=== PATIENT | female | born 2000 | race Caucasian/White ===

== ENCOUNTER 2020-08-01 16:33 | Emergency (ER) | payer BC ==
[~2020-08-01] VITALS: Ht 157.5 cm; Wt 77.1 kg
[2020-08-01] MEDS ORDERED: AMOXICILLIN 50500 MG PO (16:45)
[2020-08-01] MEDS ORDERED: PROZAC10 M1 PO (16:45)
[2020-08-01 17:02] LABS: ABSOLUTE LYMPHOCYTES 1.7 thou/uL (0.8-5.3); ABSOLUTE MONOCYTES 0.5 thou/uL (0.0-1.2); ABSOLUTE NEUTROPHILS 9.3 thou/uL (1.6-8.1); BASOPHILS 0.2 %; HEMATOCRIT 43.9 % (37.0-47.0); HEMOGLOBIN 14.8 gm/dL (12.0-15.0); MCH 28.7 pg (26.0-34.0); MCHC 33.7 g/dL (28.0-37.0); MCV 85.2 fL (80.0-100.0); MONOCYTES 4.2 %; MPV 7.2 fl. (7.2-11.1); NUCLEATED RBCS 0 /100WBC; PLATELET COUNT* 296 thou/uL (150-400); POLYS 80.6 %; RBC 5.16 mil/uL (4.20-5.00); RDW-CV 13.5 % (10.5-14.5); WBC 11.6 thou/uL (4.0-11.0)
[2020-08-01 17:07] LABS: CALCIUM 10.4 mg/dL (8.5-10.1); POTASSIUM 3.3 mmol/L (3.5-5.1)
[2020-08-01 17:11] LABS: TOTAL BILIRUBIN 0.4 mg/dL (<0.1-1.0)
[2020-08-01 17:12] LABS: ALBUMIN 4.5 g/dL (3.4-5.0); TOTAL PROTEIN 8.5 g/dL (6.4-8.2)
[2020-08-01 18:01] LABS: URINE BILIRUBIN NEGATIVE (Negative); URINE BLOOD 3+ (Negative); URINE CLARITY CLEAR; URINE COLOR YELLOW; URINE GLUCOSE-RANDOM NEGATIVE (Negative); URINE KETONES NEGATIVE (Negative); URINE LEUKOCYTES-REFLEX NEGATIVE (Negative); URINE NITRITE-REFLEX NEGATIVE (Negative); URINE PROTEIN NEGATIVE (Negative); URINE SPECIFIC GRAVITY <= 1.005 (1.005-1.030); URINE UROBILINOGEN 0.2 E.U./dl (0.2-1.0)
[2020-08-01 18:09] LABS: AMP/METHAMP Negative (Negative); BARBITURATES Negative (Negative); BENZODIAZEPINES Negative (Negative); COCAINE Negative (Negative); METHADONE Negative (Negative); OPIATES Negative (Negative); PCP Negative (Negative); THC Negative (Negative)
[2020-08-01] MEDS ORDERED: XANAX 0.5 MG0.5 MG PO (18:15)
[2020-08-01 18:21] LABS: SQUAMOUS >10 Many /LPF (0-3)
[2020-08-01 18:23] LABS: CASTS None Seen /LPF (None Seen); URINE RBC 3-10 Few /HPF (0-2); URINE WBC-REFLEX 0-5 Rare /HPF (0-5)
[2020-08-01 18:24] LABS: CRYSTALS None Seen /LPF (None Seen)
[2020-08-01 18:25] VITALS: BP 121/70
--- NOTE | 2020-08-02 14:40 | EKG ---
[place] [address] ELECTROCARDIOGRAM REPORT Name: MARIAJOSE DIOP Room: [facility]#: [id number] Admission: 08/01/20 Attend Phys: Discharge: 08/01/20 Date of : 89 Date of Service: 08/01/20 1639 Report #: [id number] THIS REPORT FOR: //name// [facility] ED Test Date: 2020-08-01 Test Time: 16:39:18 Pat Name: MARIAJOSE DIOP Department: Room: Gender: Acidity Tester: [place] : 2000 Requested By: Harriet Chavez Order Number: [id number] MD: Gonzalez Dent Measurements Intervals [place] Rate: 84 P: 50 NM: 150 QRS: 61 QRSD: 71 T: 33 QT: 398 QTc: 471 Interpretive Statements Sinus rhythm Delayed R wave progression Baseline wander in lead(s) V1 No previous ECG available for comparison javascript:perform('study_confirm'); Electronically Signed On 08-02-2020 14:40:27 EXTENSION EDGER by Gonzalez Dent [email or web address] <ELECTRONICALLY SIGNED> By: Gonzalez Dent MD, FACC 08/02/20 1440 1639 1639 Gonzalez Dent MD, [facility] /EPI
== END 2020-08-01 18:26 | disposition home or self-care (01) ==
LOC: M.ERS 16:33
PROVIDERS: Physician Assistant
DX: F43.0 Acute stress reaction (principal); Z79.899 Other long term (current) drug therapy